=== PATIENT | female | born 1970 | race Caucasian/White ===

== ENCOUNTER → 2023-12-01 11:41 | Outpatient (REF) | payer BC, SELFPAY | LOC: HWRAD 11:41 | PROVIDERS: ATTENDING PHYSICIAN Nurse Practitioner Family; FAMILY PHYSICIAN Internal Medicine | DX: M54.2 Cervicalgia (principal); M25.511 Pain in right shoulder | CPT/HCPCS: 72040; 73030 ==

== ENCOUNTER 2024-08-26 15:10 | Emergency (ER) | payer BC, SELFPAY ==
[2024-08-26 15:16] VITALS: BP 112/81
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
[2024-08-26] MEDS: DUONEB 3 ML INH (15:58)
[2024-08-26] MEDS: TYLENOL 1000 MG PO (15:58)
[2024-08-26 16:00] VITALS: BP 118/74
== END 2024-08-26 17:25 | disposition home or self-care (01) ==
LOC: EMR 15:10
PROVIDERS: EMERGENCY PHYSICIAN Emergency Medicine; FAMILY PHYSICIAN Internal Medicine
DX: T59.811A Toxic effect of smoke, accidental (unintentional), initial encounter (principal); R05.9 Cough, unspecified; R51.9 Headache, unspecified; Y92.810 Car as the place of occurrence of the external cause
CPT/HCPCS: 94640; 99284; 71046; 93005

== ENCOUNTER → 2025-05-12 09:58 | Outpatient (REF) | payer BC, SELFPAY | LOC: MRI 3T 09:58 | PROVIDERS: ATTENDING PHYSICIAN Specialist; FAMILY PHYSICIAN Family Medicine | DX: R90.82 White matter disease, unspecified (principal) | CPT/HCPCS: 70553; 72156; A9575 ==